=== PATIENT | female | born 1980 | race Caucasian/White ===

== ENCOUNTER → 2018-01-24 | Outpatient (CLI) | payer OTHER ==
[~2018-01-24] MED LIST: Cleocin HCl300 MG PO; Crutch1 EACH MISC; GUAI120S1 PO; IBUP600 PO; Norco 5-325 Ta1 EACH PO; Percocet 5-3251 EACH PO
== END | disposition home or self-care (01) ==
LOC: LAB SHORT 09:20 → LAB UCHC 09:20
PROVIDERS: Physician Assistant
DX: Z12.4 Encounter for screening for malignant neoplasm of cervix (principal)
CPT/HCPCS: 87624; G0123

== ENCOUNTER 2018-08-30 11:33 | Inpatient (IN) | payer OTHER ==
[~2018-08-30] VITALS: Ht 170.2 cm; Wt 110.0 kg
[~2018-08-30 11:33] MED LIST changes: +DOCU100 PO; +ESCI10 PO; +ESTR2 PO; +GLIP10 PO; +IBUP800 PO; +METF500C PO; +Milk Of Ma400 MG/5 M PO; +PROM25 PO
[2018-08-30 12:48] LABS: BASOPHILS ABSOLUTE AUTO 0.06 K/mm3 (0.00-0.23); BASOPHILS PERCENT AUTO 0 % (0-2); EOSINOPHILS ABSOLUTE AUTO 0.06 K/mm3 (0.00-0.68); EOSINOPHILS PERCENT AUTO 0 % (0-6); Hemoglobin 14.9 g/dL (11.5-16.0); IMMATURE GRAN ABSOLUTE AUTO 0.07 K/mm3 (0.00-0.10); IMMATURE GRAN PERCENT AUTO 0 % (0-1); LYMPHOCYTES ABSOLUTE AUTO 1.95 K/mm3 (0.84-5.20); LYMPHOCYTES PERCENT AUTO 10 % (21-46); MONOCYTES ABSOLUTE AUTO 0.81 K/mm3 (0.16-1.47); MONOCYTES PERCENT AUTO 4 % (4-13); Mean Corpuscular HGB 28.2 pg (26.0-34.0); Mean Corpuscular HGB Conc 32.4 g/dL (31.5-36.5); Mean Corpuscular Volume 87 fL (80-100); Mean Platelet Volume 11.2 fL (9.1-12.4); NEUTROPHILS ABSOLUTE AUTO 15.82 K/mm3 (1.96-9.15); NEUTROPHILS PERCENT AUTO 84 % (41-73); Platelet Count 284 K/mm3 (150-400); RDW Coefficient Variation 15.5 % (11.7-14.2); RDW Standard Deviation 50.1 fL (35.1-46.3); Red Blood Cell Count 5.28 M/mm3 (3.80-5.20); White Blood Cell Count 18.77 K/mm3 (4.00-11.30)
[2018-08-30 13:06] LABS: Alanine Aminotransfer (ALT/SGP 80 U/L (12-78); Albumin, Blood 3.9 g/dL (3.4-5.0); Albumin/Globulin Ratio 0.8 (0.8-1.8); Alk Phos 81 U/L (50-136); Anion Gap 10 mmol/L (6-16); Aspartate Aminotrans (AST/SGOT 31 U/L (12-37); Bilirubin, Total 0.4 mg/dL (0.1-1.0); Blood Urea Nitrogen 9 mg/dL (8-24); Bun/Creatinine Ratio 15.3 (12.0-20.0); CO2, Blood 22 mmol/L (21-32); Calcium, Blood 8.9 mg/dL (8.5-10.1); Chloride, Blood 103 mmol/L (98-108); Creatinine, Blood 0.59 mg/dL (0.40-1.00); Globulin, Blood 4.8 g/dL (2.2-4.0); Glomerular Filtration Rate >60 (60-); Glucose, Blood 219 mg/dL (70-99); Potassium, Blood 4.2 mmol/L (3.5-5.5); Sodium, Blood 135 mmol/L (136-145); Total Protein, Blood 8.7 g/dL (6.4-8.2)
[2018-08-30 13:09] LABS: Source, Urine Clean Catch
[2018-08-30 13:17] LABS: Appearance, Urine Hazy (Clear); Bilirubin, Urine Neg (Neg); Blood, Urine Neg (Neg); Color, Urine Yellow (P-Yellow); Glucose Qualitative, Urine 2+ (Neg); Ketones, Urine 2+ (Neg); Leukocyte Esterase, Urine Neg (Neg); Nitrite, Urine Neg (Neg); Protein, Urine 1+ (Neg); Urobilinogen, Urine NORM (Normal)
[2018-08-30 13:55] LABS: Bacteria Mod /hpf; Red Blood Cells, Urine 0-2 /hpf (0-2); Squamous Epithelial Cells Many /hpf (Few); White Blood Cells, Urine 0-2 /hpf (0-5)
[2018-08-30] MEDS ORDERED: LISI5 PO (14:15)
[2018-08-30] MEDS ORDERED: Prilosec Otc20 MG (14:16)
[2018-08-30 16:55] LABS: International Normalized Ratio 0.94; Prothrombin Time Results 9.7 Sec (9.7-11.5)
[2018-08-30] MEDS ORDERED: ESCI10 PO (18:48)
--- NOTE | 2018-08-30 19:07 | NUR ---
pt arrived to unit from ed PT TRANSFERRED INDEPENDENTLY TO BED. DENIES NAUSEA AT THIS TIME. REPORTS 7/10 ABD PAIN AT THIS TIME. AMBULATED TO RESTROOM AND VOIDED. NOW BACK TO BED. STARTED VANCO AND ADMINISTERED LOVENOX PER ORDERS. CALL LIGHT IN REACH.
[2018-08-31 05:53] LABS: BASOPHILS ABSOLUTE AUTO 0.04 K/mm3 (0.00-0.23); BASOPHILS PERCENT AUTO 0 % (0-2); EOSINOPHILS ABSOLUTE AUTO 0.06 K/mm3 (0.00-0.68); EOSINOPHILS PERCENT AUTO 0 % (0-6); Hemoglobin 12.6 g/dL (11.5-16.0); IMMATURE GRAN ABSOLUTE AUTO 0.06 K/mm3 (0.00-0.10); IMMATURE GRAN PERCENT AUTO 0 % (0-1); LYMPHOCYTES ABSOLUTE AUTO 1.77 K/mm3 (0.84-5.20); LYMPHOCYTES PERCENT AUTO 13 % (21-46); MONOCYTES ABSOLUTE AUTO 0.82 K/mm3 (0.16-1.47); MONOCYTES PERCENT AUTO 6 % (4-13); Mean Corpuscular HGB 27.6 pg (26.0-34.0); Mean Corpuscular HGB Conc 31.5 g/dL (31.5-36.5); Mean Corpuscular Volume 88 fL (80-100); Mean Platelet Volume 11.6 fL (9.1-12.4); NEUTROPHILS ABSOLUTE AUTO 10.82 K/mm3 (1.96-9.15); NEUTROPHILS PERCENT AUTO 80 % (41-73); Platelet Count 228 K/mm3 (150-400); RDW Coefficient Variation 15.9 % (11.7-14.2); RDW Standard Deviation 51.1 fL (35.1-46.3); Red Blood Cell Count 4.56 M/mm3 (3.80-5.20); White Blood Cell Count 13.57 K/mm3 (4.00-11.30)
--- NOTE | 2018-08-31 06:08 | NUR ---
SUMMARY PT REPORTING PO PAIN MEDS INEFFECTIVE.DILAUDID IV WAS GIVEN PER NEW ORDER AND WAS REPORTED EFFECTIVE.MEIDCATED FOR NAUSEA X1
[2018-08-31 06:20] LABS: Alanine Aminotransfer (ALT/SGP 54 U/L (12-78); Albumin, Blood 3.1 g/dL (3.4-5.0); Albumin/Globulin Ratio 0.7 (0.8-1.8); Alk Phos 68 U/L (50-136); Anion Gap 6 mmol/L (6-16); Aspartate Aminotrans (AST/SGOT 15 U/L (12-37); Bilirubin, Total 0.5 mg/dL (0.1-1.0); Blood Urea Nitrogen 6 mg/dL (8-24); Bun/Creatinine Ratio 12.1 (12.0-20.0); CO2, Blood 24 mmol/L (21-32); Chloride, Blood 108 mmol/L (98-108); Globulin, Blood 4.2 g/dL (2.2-4.0); Glomerular Filtration Rate >60 (60-); Glucose, Blood 185 mg/dL (70-99); Potassium, Blood 3.9 mmol/L (3.5-5.5); Sodium, Blood 138 mmol/L (136-145); Total Protein, Blood 7.3 g/dL (6.4-8.2)
--- NOTE | 2018-08-31 15:04 | NUR ---
ASSUMED CARE OF PT FROM DIVYA DINH. PT RESTING IN BED. CALL LIGHT IN REACH. AWAITING SURGERY.
--- NOTE | 2018-08-31 15:39 | NUR ---
1530 TO [facility] FROM [facility], AMBULATES FROM BED TO GURNEY WITH STABLE GAIT. MED WITH DILAUDID 1MG JUST PRIOR TO TRANFER TO [facility] FOR C/O ABD PAIN WHICH IS WORSE WITH MOVEMENT. LUNGS CLEAR T/O BILAT. CONFIRMS NPO AND PROCEDURE.
[2018-08-31 17:26] LABS: Vancomycin, Trough 11.1 ug/mL (5.0-10.0)
--- NOTE | 2018-08-31 20:00 | NUR ---
RECEIVED HAND OFF FROM Delfino DAVIS RN IN RR USING SBAR. TRANSPORTED TO ROOM VIA STRETCHER. TRANSFERED TO BED WITH FULL STAFF ASSISTANCE, TOLERATED WELL. CURRENTLY DROWSY, BUT ABLE TO OPEN EYES SPONTANIOUSLY AND FOLLOW ALL COMMANDS. REORIENTED TO ROOM, CALL SYSTEM, AND POC, VOICES UNDERSTANDING. RATED PAIN AT 9/10 TO HER ABDOMEN, 1MG DILAUDID GIVEN SIVP PER MD ORDERS. CURRENTLY DENIES ANY PAIN OR N/V. ABLE TO REPOSITION SELF IN BED. ENCOURAGED TO TURN, COUGH, AND DEEP BREATH. IS AT BEDSIDE, REITERATED NEED FOR USE WHILE AWAKE. WILL REENFORCE LATER. ICE CHIPS AND ORAL CARE PROVIDED. LAP SITES X4 WITH BANDAID COVERAGE THAT ARE C/D/I TO LEFT, UPPER ABD, AND UMBILICUS. RIGHT ABD NOTED WITH SMALL AMOUNT OF DRANAGE, BOARDERS MARKED. SPLINTING INSTRUCTIONS GIVEN. CONTINENT OF BOWEL AND BLADDER, AMBULATES TO BATHROOM. RIGHT AC 18G PIV IS PATENT, FLUSHING WITH EASE WHILE INFUSING LR AT 150ML/HR AND VANC 1.75G AT 133ML/HR. SCD'S IN PLACE. INSTRUCTED TO CALL WITH NEEDS. SAFETY MEASURES IN PLACE. WILL CONTINUE TO MONITOR.
--- NOTE | 2018-09-01 04:02 | NUR ---
02 SAT ON ROOM AIR
[2018-09-01 06:14] LABS: Alanine Aminotransfer (ALT/SGP 83 U/L (12-78); Albumin/Globulin Ratio 0.7 (0.8-1.8); Alk Phos 68 U/L (50-136); Anion Gap 7 mmol/L (6-16); Aspartate Aminotrans (AST/SGOT 54 U/L (12-37); Bilirubin, Total 0.4 mg/dL (0.1-1.0); Blood Urea Nitrogen 7 mg/dL (8-24); Bun/Creatinine Ratio 13.4 (12.0-20.0); CO2, Blood 24 mmol/L (21-32); Calcium, Blood 8.5 mg/dL (8.5-10.1); Chloride, Blood 106 mmol/L (98-108); Creatinine, Blood 0.52 mg/dL (0.40-1.00); Globulin, Blood 4.2 g/dL (2.2-4.0); Glomerular Filtration Rate >60 (60-); Glucose, Blood 200 mg/dL (70-99); Potassium, Blood 4.4 mmol/L (3.5-5.5); Sodium, Blood 137 mmol/L (136-145); Total Protein, Blood 7.2 g/dL (6.4-8.2)
--- NOTE | 2018-09-01 07:25 | NUR ---
NO CHANGES SINCE RETURNING FROM OR. SAFETY MEASURES IN PLACE. HAND OFF GIVEN TO Aftab GAO RN USING SBAR.
--- NOTE | 2018-09-01 13:06 | NUR ---
PT IV WITH SMALL INFILTRATION. IV OUT WNL. PT HAS NO OTHER IV IN PLACE. PT REQ TO NOT HAVE ANOTHER IV PLACED AT THIS TIME. PT REPORTS PAIN "DOWN TO 8/10" PT REPORTS DOES NOT WISH TO HAVE ANYTHING ELSE FOR PAIN AT THIS TIME. REPORTS "MOST MEDICATIONS DON'T HELP MUCH AND I DON'T LIKE TO TAKE THEM ANYWAY". PT RESTING WITH EYES CLOSED WHEN NOT DISTURBED.
--- NOTE | 2018-09-01 13:22 | NUR ---
DR LAWLER NOTIFIED OF PT REQUESTING NAUSEA PILL DOES NOT HAVE IV AT THIS TIME AND REQ TO HAVE PILL INSTEAD OF STARTING NEW IV. DR MILLER WILL PLACE ORDERS.
--- NOTE | 2018-09-01 13:23 | NUR ---
DR LAWLER ALSO NOTIFIED OF PT PASSING GAS, REPORTS TO CLARIFY DIET ORDER WITH DR LYNN.
--- NOTE | 2018-09-01 15:20 | NUR ---
DR NOTIFIED OF PT REQUESTING PAIN MEDICATION, REPORTS WILL PLACE ORDERS.
--- NOTE | 2018-09-01 18:18 | NUR ---
SHIFT SUMMARY PT HAVING SMALL AMTS OF C.L. PT WAS MED FOR NAUSEA. PT REPORTS OXYCODONE WORKED BETTER FOR PAIN THAN NORCO DID. PT REPORTS FEELING BETTER AFTER HAVING NAP THIS AFTERNOON. PT REPORTS BEEN UP AND AMBULATED. FAMILY IN/OUT OF ROOM. PT REPORTS PASSING SMALL AMTS OF GAS.
--- NOTE | 2018-09-02 08:02 | NUR ---
PT REPORTS PASSING GAS. REPORTS FEELING MUCH BETTER TODAY. PT HAS NO IV. REFUSING PAS, REPORTS UP FREQUENTLY.
--- NOTE | 2018-09-02 13:13 | NUR ---
DISCUSSED D/C PAIN MEDS WITH DR LAWLER, REPORTS TO D/C OXYCODONE AND USE SCRIPT ON CHART.
[2018-09-02] MEDS ORDERED: HYDR1TAB94 PO (13:34)
--- NOTE | 2018-09-02 14:09 | NUR ---
DISCHARGE: PT REPORTS TOLERATING DIET. PAIN CONTROLLED ON PO PAIN MEDICATION. PT REPORTS PASSING GAS, VOIDING WITHOUT DIFF. PT/FAMILY REPORTS UNDERSTANDING OF DISCHARGE INSTRUCTIONS. BELONGINGS SENT WITH PT. SCRIPT SENT WITH PT. PT HAS NO IV. PT AMBULATING IND WITH STEADY GAIT.
== END 2018-09-02 14:08 | disposition home or self-care (01) | DRG 855 ==
LOC: ER 11:33 → SURS 16:14
PROVIDERS: Emergency Medicine; Surgery; ADMIT Internal Medicine
PROC: 0FT44ZZ Resection of Gallbladder, Percutaneous Endoscopic Approach (ICD-10-PCS; principal; 2018-08-31 14:30)
DX: A41.9 Sepsis, unspecified organism (principal); K80.20 Calculus of gallbladder without cholecystitis without obstruction; I10 Essential (primary) hypertension; E11.9 Type 2 diabetes mellitus without complications; K21.9 Gastro-esophageal reflux disease without esophagitis; F41.9 Anxiety disorder, unspecified; E66.9 Obesity, unspecified; Z68.37 Body mass index [BMI] 37.0-37.9, adult; Z87.891 Personal history of nicotine dependence; Z79.84 Long term (current) use of oral hypoglycemic drugs; Z79.899 Other long term (current) drug therapy
CPT/HCPCS: 36415; 76705; 80053; 80202; 81001; 82947; 83036; 83605; 83690; 85025; 85610; 85730; 87040; 87086; 88304; 96365; 96375; 99285-25; C1729; C1894; C9113; J0696; J1100; J1170; J1650; J1885; J2250; J2405; J3010; J3370; J7030; J7050; J7120

== ENCOUNTER → 2022-01-04 | Outpatient (CLI) | payer OTHER ==
[~2022-01-04] MED LIST changes: +ESCI20 PO; +HYDR1TAB94 PO; +LISI5 PO; +NEURONTIN300 MG PO; +PIOGLITAZONE HC15 MG PO; +Prilosec Otc20 MG
[2022-01-04 19:41] LABS: Alanine Aminotransfer (ALT/SGP 59 U/L (12-78); Albumin, Blood 3.7 g/dL (3.4-5.0); Alk Phos 69 U/L (50-136); Anion Gap 8 mmol/L (6-16); Aspartate Aminotrans (AST/SGOT 22 U/L (12-37); Bilirubin, Total 0.3 mg/dL (0.1-1.0); Blood Urea Nitrogen 12 mg/dL (8-24); Bun/Creatinine Ratio 15.3 (12.0-20.0); CO2, Blood 26 mmol/L (21-32); Chloride, Blood 108 mmol/L (98-108); Creatinine, Blood 0.78 mg/dL (0.40-1.00); Globulin, Blood 3.6 g/dL (2.2-4.0); Glomerular Filtration Rate >60 (60-); Glucose, Blood 92 mg/dL (70-99); Potassium, Blood 3.8 mmol/L (3.5-5.5); Sodium, Blood 142 mmol/L (136-145); Total Protein, Blood 7.3 g/dL (6.4-8.2)
== END | disposition home or self-care (01) ==
LOC: LAB 16:45 → LAB SHORT 16:45
PROVIDERS: Physician Assistant
DX: E11.42 Type 2 diabetes mellitus with diabetic polyneuropathy (principal); E11.65 Type 2 diabetes mellitus with hyperglycemia
CPT/HCPCS: 80053; 83036